=== PATIENT | female | born 1930 | race Caucasian/White ===

== ENCOUNTER → 2018-10-29 | Outpatient (CLI) | payer MEDICARE, BC ==
[~2018-10-29] MED LIST: Barium Sulfate w/v 2.1% Oral Susp 450 ML Bottle PO ONE; Iopamidol 612 MG/ML 75 ML Bottle IVPUSH ONE
--- NOTE | 2018-10-29 16:21 | CT ---
Clinical history: 88-year-old 170 pound female with clinical "gastroenteritis" and abdominal pain. (Appendectomy and Hysterectomy.) Scan technique: Volume acquisition of data from the abdomen and pelvis obtained after oral ingestion 2 bottles Redicat barium and during/after intravenous infusion 75 cc nonionic Isovue contrast patient was lying supine on the Siemens multi slice scanner [place], [place]. All data archived in the PACS system for storage, reformatting axial/sagittal/coronal planes and study. Interpretation: 1. Numerous diverticula sigmoid colon without associated signs of inflammation i.e. no pericolonic inflammatory "dirty" peritoneal fat, abscess or signs of mechanical bowel obstruction. No indication inflamed small bowel or mesenteric ischemia. 2. No abdominal or pelvic mass lesion, mesenteric or retroperitoneal lymphadenopathy, signs of mechanical bowel obstruction, ascites or free intraperitoneal air. No ventral wall hernias. 3. Gallbladder, liver, stomach, spleen, pancreas and adrenal glands unremarkable. 4. Normal cardiac silhouette and lung bases are clear. Densely calcified "cast" normal caliber abdominal aorta. No aneurysm. 5. Normal reniform size, axis and configuration. No sign of renal cortical mass lesion (peripelvic fat left kidney), nephrolithiasis or obstructive uropathy. Incompletely but symmetrically distended urinary bladder unremarkable. No bladder stones. 6. Osteoporosis. Multilevel lower thoracic and L5-S1 disc disease. Conclusion: Sigmoid diverticulosis. Usual signs of senescence.
== END ==
LOC: DL.CT 10:23
PROVIDERS: ATTEND Internal Medicine
DX: R10.9 Unspecified abdominal pain (principal); R14.0 Abdominal distension (gaseous); K57.30 Diverticulosis of large intestine without perforation or abscess without bleeding
CPT/HCPCS: 74177; Q9967

== ENCOUNTER 2018-11-09 05:50 | Day surgery (SDC) | payer MEDICARE, BC ==
[2018-11-09] MEDS ORDERED: Midazolam 1 MG/ML 2 ML SDV IV ONE ×2 (05:51→07:12)
[2018-11-09] MEDS ORDERED: fentaNYL 100 MCG/2 ML SDV IV ONE ×2 (05:51→07:11)
[2018-11-09] MEDS ORDERED: fentaNYL 100 MCG/2 ML SDV ONE (06:04)
[2018-11-09] MEDS ORDERED: Midazolam 1 MG/ML 2 ML SDV ONE (06:04)
[2018-11-09] MEDS ORDERED: Dextrose 5%-0.45% NaCl 1,000 ML IV SCH (06:45)
--- NOTE | 2018-11-09 11:50 | OR ---
DATE: 11/09/2018 PROCEDURE PERFORMED: Esophagogastroduodenoscopy and multiple pinch biopsies. INSTRUMENT USED: GIF-HQ190 Olympus video panendoscope. PREMEDICATIONS: No oral or topical anesthesia used. Fentanyl 50 mcg intravenous, Versed 1 mg intravenous. Nasal O2 cannula. The procedure was done under pulse oximetry, BP recording, and computer lab para professional. INDICATIONS: The patient with persistent nausea and dyspepsia unexplained and not responsive to medical measures. Esophagogastroduodenoscopy is performed for detection of any active erosive lesions, Ibrahim esophagus, and/or malignancy also under consideration. H. pylori status to be determined, endoscopic hemostasis therapy if needed. DESCRIPTION OF PROCEDURE: The scope was passed with ease. Adequate visualization of the esophagus was made from proximal to distal areas. No upper esophageal lesions identified. No distal esophageal stricture. No uphill or downhill esophageal viruses. No Shiloh-Fong tear. No evidence of erosive esophagitis by [place] criteria. No esophageal polyp or tumor mass identified. Z-line was seen at around 39 cm distal to the oral verge, configuration consistent with grade 1 by ZAP classification. No proximal gastric varices noted. Gastric fundus examination by retroflexion showed no polypoid lesions. No gastric ulcer, malignant mass, or vascular ectasia identified. Prominent venous channels were noted in the gastric mucosa consistent with diffuse gastric atrophy. Duodenal bulb showed no ulcer. Visualized second part of the duodenum was unremarkable. Multiple pinch biopsies were taken from the gastric antrum and proximal body and sent for PyloriTek test for H. pylori, and if negative in an hour, tissue is to be sent for histopathology. No bleeding was noted from any of the visualized areas at the completion of examination. Photographs were taken of the duodenal bulb, gastric antrum, fundus, and distal esophagus. IMPRESSION: Diffuse gastric atrophy. The patient tolerated the procedure well. [facility] /[id number]
== END 2018-11-09 09:26 | disposition home or self-care (01) ==
LOC: DL.ENDO 05:50
PROVIDERS: ATTEND Internal Medicine Gastroenterology
DX: K29.40 Chronic atrophic gastritis without bleeding (principal); K57.30 Diverticulosis of large intestine without perforation or abscess without bleeding; I10 Essential (primary) hypertension; E78.5 Hyperlipidemia, unspecified; E03.9 Hypothyroidism, unspecified; Z79.82 Long term (current) use of aspirin; Z98.890 Other specified postprocedural states
CPT/HCPCS: 43239; 87077; J2250; J3010; J7042

== ENCOUNTER 2018-11-14 12:42 | Emergency (ER) | payer MEDICARE, BC ==
[2018-11-14] MEDS ORDERED: Sodium Chloride 0.9% 10 ML Syringe FLUSH PRN (13:00)
--- NOTE | 2018-11-14 13:39 | EDM.PDOC ---
Scribed by Kavitha Biswas 11/14/18 1312 for Basilio Cordero MD ED HPI GENERAL MEDICAL PROBLEM - General Chief Complaint: Gastrointestinal Problem Stated Complaint: DARK STOOLS Time Seen by Provider: 11/14/18 12:59 Source of Information: Reports: Patient, RN, RN Notes Reviewed History Limitations: Reports: No Limitations - History of Present Illness INITIAL COMMENTS - FREE TEXT/NARRATIVE: Patient presents to ER with complaint of several days of loose tarry stool. She underwent EGD with Dr. Frias on 11/09/18 due to nausea, dyspepsia and unexplained dizziness. Operative report indicates findings of diffuse gastric atrophy. Biopsies were taken. No erosions or bleeding were found. She admits to decreased appetite for the past several days. Denies nausea, vomiting, diarrhea or bloody stool. She continuse to have chronic dizziness. Denies syncope. No prior history of GI bleeding. Onset: Gradual Duration: Getting Worse Location: Reports: Abdomen Severity: Mild Improves with: Reports: None Worsens with: Reports: None Associated Symptoms: Reports: No Other Symptoms - Related Data Allergies Allergy/AdvReac Type Severity Reaction Status Date / Time No Known Allergies Allergy Verified 11/09/18 06:29 Home Meds: Home Meds Amlodipine/Valsartan/Hcthiazid [Gubqy-[id number]-Mpgi 10-160-25 mg] 1 tab PO DAILY [History] Latanoprost 1 drop EYEBOTH BEDTIME 11/05/18 [History] Levothyroxine 75 mcg PO DAILY 11/05/18 [History] Multivitamin [Daily Multiple Vitamin] 1 tab PO DAILY 11/05/18 [History] Timolol Maleate [Timoptic 0.5% Ophth Soln] 1 drop EYEBOTH BID 11/05/18 [History] atorvaSTATin [Lipitor] 20 mg PO BEDTIME 11/05/18 [History] Past Medical History HEENT History: Reports: Glaucoma, Impaired Vision Cardiovascular History: Reports: High Cholesterol, Hypertension Respiratory History: Reports: None Gastrointestinal History: Reports: Chronic Constipation, Other (See Below) ( colonic diverticulosis. Status post colonic tubular adenoma. Status post H. pylori infection. 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: Musculoskeletal History: Reports: Arthritis, Other (See Below) (statust post left wrist fracture.) Neurological History: Reports: None Psychiatric History: Reports: None Endocrine/Metabolic History: Reports: Diabetes Mellitus, Type 3c, Hypothyroidism , Obesity/BMI 30+ Hematologic History: Reports: Blood Transfusion(s) Immunologic History: Reports: None Oncologic (Cancer) History: Reports: None - Infectious Disease History Infectious Disease History: Reports: Chicken Pox, Measles, Mumps, Shingles - Past Surgical History Head Surgeries/Procedures: Reports: None HEENT Surgical History: Reports: Cataract Surgery Cardiovascular Surgical History: Reports: None Respiratory Surgical History: Reports: None GI Surgical History: Reports: Appendectomy, Colonoscopy, EGD, Polypectomy Female Surgical History: Reports: Hysterectomy (for benign disease.) Neurological Surgical History: Reports: None Musculoskeletal Surgical History: Reports: None Oncologic Surgical History: Reports: None Dermatological Surgical History: Reports: None Social & Family History - Family History Family Medical History: Noncontributory - Caffeine Use Caffeine Use: Reports: Coffee Other Caffeine Use: 2 CUPS - Living Situation & Occupation Living situation: Reports: Alone Occupation: Retired ED ROS GENERAL - Review of Systems Review Of Systems: ROS reveals no pertinent complaints other than HPI. ED EXAM, GI/ABD - Physical Exam Exam: See Below Exam Limited By: No Limitations General Appearance: Alert, WD/WN, No Apparent Distress Eyes: Bilateral: Normal Appearance, EOMI Nose: Normal Inspection, No Blood Throat/Mouth: Normal Inspection, Normal Lips, Normal Teeth, Normal Gums, Normal Oropharynx, Normal Voice, No Airway Compromise Head: Atraumatic, Normocephalic Neck: Normal Inspection, Supple, Non-Tender, Full Range of Motion Respiratory/Chest: No Respiratory Distress, Lungs Clear, Normal Breath Sounds, No Accessory Muscle Use, Chest Non-Tender Cardiovascular: Normal Peripheral Pulses, Regular Rate, Rhythm, No Edema, No Gallop, No JVD, No Murmur, No Rub GI/Abdominal Exam: Normal Bowel Sounds, Soft, Non-Tender, No Organomegaly, No Distention, No Abnormal Bruit, No Mass, Pelvis Stable Rectal (Female) Exam: Heme - Stool, Other (Dark stool) Back Exam: Normal Inspection Extremities: Normal Inspection Neurological: Alert, Oriented, No Motor/Sensory Deficits Psychiatric: Normal Mood Skin Exam: Warm, Dry, Intact, Normal Color, No Rash Course - Vital Signs Last Recorded V/S: Last Vital Signs Temp 36.9 C 11/14/18 13:07 Pulse 97 11/14/18 13:07 Resp 16 11/14/18 13:07 BP 138/53 L 11/14/18 13:07 Pulse Ox 98 11/14/18 13:07 - Orders/Labs/Meds Orders: Active Orders 24 hr Category Date Time Status Peripheral IV Care [RC] . DIRECTED Care 11/14/18 13:00 Active AMYLASE [CHEM] Stat Lab 11/14/18 13:05 Received COMPREHENSIVE METABOLIC PN,CMP [CHEM] Stat Lab 11/14/18 13:05 Received Hemoccult, Stool [OCCULT BLOOD DIAGNOSTIC] [OP] Stat Lab 11/14/18 13:00 Ordered Hemoccult, Stool [OCCULT BLOOD DIAGNOSTIC] [OP] Stat Lab 11/14/18 13:00 Ordered LACTATE DEHYDROGENASE,LDH [CHEM] Stat Lab 11/14/18 13:05 Received LIPASE [CHEM] Stat Lab 11/14/18 13:05 Received UA RFX YARA AND CULT IF INDIC [URIN] Stat Lab 11/14/18 13:00 Ordered Sodium Chloride 0.9% [Saline Flush] Med 11/14/18 13:00 Active 10 ml FLUSH ASDIRECTED PRN Peripheral IV Insertion Adult [OM.PC] Stat Oth 11/14/18 12:59 Ordered Medication Orders Sodium Chloride (Saline Flush) 10 ml FLUSH ASDIRECTED PRN PRN Reason: Keep Vein Open Last Admin: 11/14/18 13:31 Dose: 10 ml Labs: Laboratory Tests 11/14/18 11/14/18 11/14/18 Range/Units 13:05 13:05 13:05 WBC 8.7 (5.0-10.0) 10^3/uL RBC 4.25 (4.2-5.4) 10^6/uL Hgb 12.6 (12.0-16.0) g/dL Hct 36.9 L (37.0-47.0) % MCV 86.8 (80-100) fL MCH 29.6 (27.0-34.0) pg MCHC 34.1 (33.0-35.0) g/dL Plt Count 314 (150-450) 10^3/uL Neut % (Auto) 70.0 (42.2-75.2) % Lymph % (Auto) 15.7 L (20.5-50.1) % [place] % (Auto) 12.8 H (2-8) % Eos % (Auto) 1.0 (1.0-3.0) % Baso % (Auto) 0.5 (0.0-1.0) % PT 10.2 (9.0-12.0) SEC INR 1.0 (0.9-1.2) APTT 25.5 (22.0-34.0) SEC Lactic Acid 1.0 (0.5-2.2) mmol/L Stool Hemoccult: negative Meds: Medications Generic Name Dose Route Start Last Admin Trade Name Freq PRN Reason Stop Dose Admin Sodium Chloride 10 ml 11/14/18 13:00 11/14/18 13:31 Saline Flush FLUSH 10 ml ASDIRECTED PRN Administration Keep Vein Open Departure - Departure Time of Disposition: 13:36 Disposition: Home, Self-Care 01 Condition: Good Clinical Impression: Encounter for medical screening examination - Discharge Information *PRESCRIPTION DRUG MONITORING PROGRAM REVIEWED*: No *COPY OF PRESCRIPTION DRUG MONITORING REPORT IN PATIENT NEPTALI: No Instructions: Stool for Occult Blood Test, Medical Screening Exam Forms: ED Department Discharge Additional Instructions: No sign of anemia, and no blood present in your stool at this time. Follow up in clinic this week with your doctor for recheck. - My Orders Last 24 Hours: My Active Orders 11/14/18 12:59 Peripheral IV Insertion Adult [OM.PC] Stat 11/14/18 13:00 Peripheral IV Care [RC] . DIRECTED Hemoccult, Stool [OCCULT BLOOD DIAGNOSTIC] [OP] Stat Hemoccult, Stool [OCCULT BLOOD DIAGNOSTIC] [OP] Stat UA RFX YARA AND CULT IF INDIC [URIN] Stat Sodium Chloride 0.9% [Saline Flush] 10 ml FLUSH ASDIRECTED PRN 11/14/18 13:05 AMYLASE [CHEM] Stat COMPREHENSIVE METABOLIC PN,CMP [CHEM] Stat LACTATE DEHYDROGENASE,LDH [CHEM] Stat LIPASE [CHEM] Stat - Assessment/Plan Last 24 Hours: My Active Orders 11/14/18 12:59 Peripheral IV Insertion Adult [OM.PC] Stat 11/14/18 13:00 Peripheral IV Care [RC] . DIRECTED Hemoccult, Stool [OCCULT BLOOD DIAGNOSTIC] [OP] Stat Hemoccult, Stool [OCCULT BLOOD DIAGNOSTIC] [OP] Stat UA RFX YARA AND CULT IF INDIC [URIN] Stat Sodium Chloride 0.9% [Saline Flush] 10 ml FLUSH ASDIRECTED PRN 11/14/18 13:05 AMYLASE [CHEM] Stat COMPREHENSIVE METABOLIC PN,CMP [CHEM] Stat LACTATE DEHYDROGENASE,LDH [CHEM] Stat LIPASE [CHEM] Stat I have read and agree with the documentation that has been completed regarding this visit. By signing this record, I attest that the documentation was completed in my physical presence and is an accurate record of the encounter.
== END 2018-11-14 13:52 | disposition home or self-care (01) ==
LOC: DL.ED 12:42
DX: Z13.9 Encounter for screening, unspecified (principal); E11.22 Type 2 diabetes mellitus with diabetic chronic kidney disease; I12.9 Hypertensive chronic kidney disease with stage 1 through stage 4 chronic kidney disease, or unspecified chronic kidney disease; N18.9 Chronic kidney disease, unspecified; E78.00 Pure hypercholesterolemia, unspecified; Z79.899 Other long term (current) drug therapy; E03.9 Hypothyroidism, unspecified
CPT/HCPCS: 36415; 80053; 81003; 82150; 82272; 83605; 83615; 83690; 85025; 85610; 85730; 99284

== ENCOUNTER 2018-11-29 05:29 | Day surgery (SDC) | payer MEDICARE, BC ==
[2018-11-29] MEDS ORDERED: fentaNYL 100 MCG/2 ML SDV IV ONE ×3 (05:30→06:37)
[2018-11-29] MEDS ORDERED: Midazolam 1 MG/ML 2 ML SDV IV ONE ×5 (05:30→06:49)
[2018-11-29] MEDS ORDERED: Sodium Chloride 0.9% 10 ML Syringe FLUSH PRN (06:00)
[2018-11-29] MEDS ORDERED: Dextrose 5%-0.45% NaCl 1,000 ML IV SCH (06:00)
[2018-11-29] MEDS ORDERED: Midazolam 1 MG/ML 2 ML SDV ONE (06:16)
[2018-11-29] MEDS ORDERED: fentaNYL 100 MCG/2 ML SDV ONE (06:17)
--- NOTE | 2018-11-29 13:04 | OR ---
DATE: 11/29/2018 PROCEDURE: Total colonoscopy. INSTRUMENT USED: [id number]-H190DL Olympus video colonoscope. PREMEDICATIONS: Fentanyl 100 mcg intravenous, Versed 3 mg intravenous. Nasal O2 cannula. The procedure was done under pulse oximetry, BP recording, and library monitor. INDICATION: The patient with previous colonic tubular adenoma, recently with alteration in bowel habits including intermittent diarrhea unexplained and not responsive to medical measures. Colonoscopic examination is done for detection of any polypoid lesions and removal, endoscopic hemostasis therapy if needed. DESCRIPTION OF PROCEDURE: Initial rectal exam showed large prolapsing external hemorrhoids. Rigid anoscopy was unremarkable. The colonoscope was passed with ease. Numerous scattered wide-mouth diverticula were noted in the distal left colon along with deformity. The scope was passed with ease up to the ileocecal area. Photographs were taken of the normal-appearing cecum identified by landmarks of appendiceal orifice and double-bulged ileocecal folds. No bleeding was noted from any of the visualized areas at the commencement of the examination. No stricture. No vascular ectasia. No large isolated ulcerations seen. No evidence of diffuse inflammatory bowel disease in the form of friability, contact bleeding, or ulcerations. No polyp or tumor mass identified. Probing the proximal sides of folds and flexures using adequate distention and clearing up the stool material, withdrawal of the scope was made, cecum to rectum time over 6 minutes. No bleeding was noted from any of the visualized areas at the completion of examination. IMPRESSION: 1. External hemorrhoids. 2. Diverticulosis. The patient tolerated the procedure well. [facility] /[id number]
== END 2018-11-29 08:55 | disposition home or self-care (01) ==
LOC: DL.ENDO 05:29
PROVIDERS: ATTEND Internal Medicine Gastroenterology
DX: R19.4 Change in bowel habit (principal); K57.30 Diverticulosis of large intestine without perforation or abscess without bleeding; K64.4 Residual hemorrhoidal skin tags
CPT/HCPCS: 45378; G0121; J2250; J3010; J7042